=== PATIENT | female | born 1985 | race Caucasian/White ===

== ENCOUNTER → 2023-12-31 13:16 | Outpatient (REF) | payer OTHER, SELFPAY | LOC: PNTC 13:16 | PROVIDERS: ATTENDING PHYSICIAN Obstetrics & Gynecology | DX: O09.529 Supervision of elderly multigravida, unspecified trimester (principal) | CPT/HCPCS: 76811 ==

== ENCOUNTER → 2024-02-15 10:44 | Outpatient (REF) | payer OTHER, SELFPAY | LOC: PNTC 10:44 | PROVIDERS: ATTENDING PHYSICIAN Obstetrics & Gynecology | DX: O09.529 Supervision of elderly multigravida, unspecified trimester (principal) | CPT/HCPCS: 76816 ==

== ENCOUNTER 2024-04-12 09:32 | Inpatient (IN) | payer OTHER, SELFPAY ==
[2024-04-12 10:27] LABS: % Basophils 0.2 % (0-2); % Eosinophils 0.3 % (0-6); % Immature Granulocytes 0.5 % (0-0.5); % Lymphocytes 9.5 % (20.5-51.1); % Monocytes 4.7 % (1.7-9.3); % Neutrophils 84.8 % (42.2-75.2); Absolute Immature Granulocytes 0.1 10^3/uL (0-0.05); Absolute Lymphocytes 1.2 10^3/uL (1.2-3.4); Absolute Monocytes 0.6 10^3/uL (0.1-0.6); Absolute Neutrophils 10.7 10^3/uL (1.4-6.5); Mean Corp Hgb Conc. 34.3 g/dL (33.0-37.0); Mean Corpuscular Hgb 30.6 pg (27.0-31.0); Mean Corpuscular Volume 89.3 fL (81.0-99.0); Mean Platelet Volume 11.7 fL (7.4-10.4); Nucleated Red Blood Cells % 0 %; Platelet Count 226 10^3/uL (130-400); Red Blood Cell Count 3.92 10^6/uL (4.20-5.40); Red Cell Dist. Width 12.8 % (11.5-14.5); White Blood Cell Count 12.6 10^3/uL (4.8-10.8)
[2024-04-12 10:28] VITALS: BMI 29.0
[2024-04-12] MEDS: FENTANYL/BUPIVACAINE 100 EPIDURAL (11:10)
[2024-04-12] MEDS: SUBLIMAZE 100 MCG EPIDURAL (11:10)
[2024-04-12] MEDS: PITOCIN 30 UNITS/NSS 500 ML IV (11:54)
[2024-04-12 12:12] VITALS: BP 124/88
[2024-04-12] MEDS: TYLENOL 650 MG PO (16:10)
[2024-04-12] MEDS: MOTRIN 600 MG PO (16:34)
[2024-04-12 17:52] LABS: % Basophils 0.1 % (0-2); % Eosinophils 0.2 % (0-6); % Immature Granulocytes 0.5 % (0-0.5); % Lymphocytes 11.3 % (20.5-51.1); % Monocytes 6.4 % (1.7-9.3); % Neutrophils 81.5 % (42.2-75.2); Absolute Immature Granulocytes 0.1 10^3/uL (0-0.05); Absolute Lymphocytes 1.9 10^3/uL (1.2-3.4); Absolute Monocytes 1.1 10^3/uL (0.1-0.6); Absolute Neutrophils 13.4 10^3/uL (1.4-6.5); Hemoglobin 10.5 g/dL (12.0-16.0); Mean Corpuscular Hgb 30.4 pg (27.0-31.0); Mean Platelet Volume 11.1 fL (7.4-10.4); Nucleated Red Blood Cells % 0 %; Platelet Count 250 10^3/uL (130-400); Red Blood Cell Count 3.45 10^6/uL (4.20-5.40); Red Cell Dist. Width 12.8 % (11.5-14.5); White Blood Cell Count 16.5 10^3/uL (4.8-10.8)
[2024-04-12] MEDS: DILAUDID 1 MG IV ×2 (18:01→23:31)
[2024-04-12 18:04] LABS: INR 1.01; PT 13.1 Sec (11.4-14.6)
[2024-04-12 18:05] LABS: APTT 28.2 Sec (23.4-35.0)
[2024-04-12] MEDS: DILAUDID 0.5 MG IV (18:52)
--- NOTE | 2024-04-12 20:08 | CONS.URO ---
Consultation
-
Performing Provider: Jimbo Alvarado
Reason for Consultation: Vulvar hematoma
Medical History
History of Present Illness
38 yo woman day 0 after a standard vaginal delivery developed a hematoma of her right vulva. The patient developed vaginal and rectal pressure following her vaginal . On exam, the crts reported an enlarging right vulvar
hematoma. Dr. Galo was called for evaluation and noted the hematoma was enlarging within 3 hours of her delivery. The patient reported that she had worsening pressure of her vagina and rectum. Ice packs and compression was applied to the vulva
however the size of her vulvar hematoma continued to expand and her pain increased requiring IV Dilaudid. She denies any dizziness, vaginal bleeding, fevers, nausea or vomiting. Patient denies any medical history, bleeding disorders or regular
medications.
Past Medical History
Past Medical History: None
Past Surgical History: None
Social History
Tobacco: Non-smoker
Drug: None
Personal:
Employment: Employed
Family History
Family History: Reviewed & Not Pertinent
Allergies/Home Medications
Allergies
Allergy/AdvReac Type Severity Reaction Status Date / Time
No Known Allergies Allergy Verified 04/12/24 10:29
Home Medications
�Medication �Instructions �Recorded �Confirmed �Type
prenat.vits,stanislav,tng-vicp-lhxmj 1 tab PO DAILY Supplement 06/21/22 04/12/24 History
Review of Systems
-
A 12 point Review of Systems was completed except as noted: Yes
Constitutional: Reports No Symptoms
EENT: Reports No Symptoms
Respiratory: Reports No Symptoms
Cardiac: Reports No Symptoms
Abdomen/GI: Reports No Symptoms
: Reports See HPI
Musculoskeletal: Reports No Symptoms
Neurological: Reports No Symptoms
Endocrine: Reports No Symptoms
Psych: Reports No Symptoms
Physical Exam
Vital Signs
Vital Signs
Temp Pulse Resp BP
97.8 F 72 18 124/88
04/12/24 12:12 04/12/24 12:12 04/12/24 12:12 04/12/24 12:12
Lab / Testing Results
Laboratory Results
04/12/24 17:43
Physical Exam
Genitourinary: 12 to 15 cm right vulvar hematoma, sutures in tact from her 2nd degree perineal lacerations, perirectal edema and bruising, ++tenderness, no necrosis, no active bleeding noted, no discharge
Assessment / Plan
-
38 yo woman admitted for labor and delivery and developed vulvar hematoma soon after vaginal . Her CT angio demonstrated an arterial bleed of the internal pudendal artery (right side).
1. Vulvar Hematoma involving the right internal pudendal artery
-patient is going to IR for embolization of her arterial bleed
-remain NPO
-ice packs with compression
-IV Dilaudid PRN for pain control
-TXA 1 gram
-Due to size of the hematoma, patient will likely need evacuation of her hematoma in the OR for comfort however I recommend that her
-serial CBC and coag overnight
-type and cross for 2 units
-lala with strict I and O
Jimbo Alvarado MD
--- NOTE | 2024-04-12 22:45 | W.PN.UPDATE ---
Update Note
Progress Note Update
Procedure: Pelvic arteriogram with subselective arteriogram of left internal iliac branches
- Initial pelvic arteriogram showed faint abnormal blush of contrast on the late arterial phase suspicious for site of bleeding, felt to arise from the left internal pudendal artery. Subsequent selective arteriograms of the left internal pudendal
failed to reproduce any suspicious findings. Several additional branches interrogated, also negative.
- 5F Mynx closure device deployed.
- R leg flat for 3 hours
- Only fentanyl given during the case. Ok to breast feed in 3 hours.
[2024-04-12] MEDS: TRANEXAMIC ACID 100 IV (23:25)
[2024-04-12 23:34] LABS: Hematocrit 24.4 % (37.0-47.0); Hemoglobin 8.6 g/dL (12.0-16.0); Mean Corp Hgb Conc. 35.2 g/dL (33.0-37.0); Mean Corpuscular Hgb 30.5 pg (27.0-31.0); Mean Corpuscular Volume 86.5 fL (81.0-99.0); Mean Platelet Volume 11.3 fL (7.4-10.4); Platelet Count 250 10^3/uL (130-400); Red Blood Cell Count 2.82 10^6/uL (4.20-5.40); Red Cell Dist. Width 12.7 % (11.5-14.5); White Blood Cell Count 18.5 10^3/uL (4.8-10.8)
[2024-04-12] MEDS: FLAGYL 500 MG 100 IV (23:35)
[2024-04-12] MEDS: ANCEF 5 IV ×2 (23:37→23:45)
[2024-04-12] MEDS: ZOFRAN 4 MG IV (23:44)
[2024-04-13] VITALS (14 sets, daily range): BP systolic 89–118; BP diastolic 45–101
--- NOTE | 2024-04-13 02:06 | W.SUR.POST ---
Surgical Immediate Post Op
Note
Pre Op Diagnosis: Right vulvar hematoma
Post Op Diagnosis: Right vulvar hematoma
Procedure Performed: Exam under anesthesia, evacuation of hematoma
Primary Surgeon: Jimbo Alvarado MD
Secondary Surgeons: Sudheer Galo MD
Anesthesia: General with ET tube
Estimated Blood Loss: 100 cc
Drains/Shunts: Delarosa catheter
Specimens/Cultures: None
Doppler/Duplex/Angio (Y/N): N
Complications: None
Operative Findings: 15cm vulvar hematoma tracking into vaginal sidewall and perirectal space
[2024-04-13] MEDS: TYLENOL 650 MG PO ×5 (05:04→23:06)
[2024-04-13] MEDS: LR 1000 IV ×2 (05:45→20:09)
[2024-04-13 06:21] LABS: Hematocrit 24.8 % (37.0-47.0); Hemoglobin 8.6 g/dL (12.0-16.0)
[2024-04-13] MEDS: FLAGYL 500 MG IV ×2 (07:30→07:34)
[2024-04-13] MEDS: FLAGYL 500 MG 100 IV ×4 (07:35→23:05)
[2024-04-13] MEDS: ANCEF 5 IV ×3 (08:06→23:41)
--- NOTE | 2024-04-13 08:13 | W.PN.UPDATE ---
Update Note
Progress Note Update
38 yo female who had a spontaneous vaginal delivery yesterday. She developed a right vulvar hematoma. She underwent IR angiogram but no acute bleed was identified. She then had a spontaneous rupture of the hematoma and was taken to the OR for
evacuation. She is feeling better today.
VSS. She is AA&O in NAD. Color is pale skin. Skin is warm and dry. Heart is regular. Lungs are CTA. Abdomen is soft with expected tenderness. Bowel sounds are present. Right groin dressing CDI. Palpable pulses. No inguinal hematoma. No LE
edema.
Hgb 12.0-->10.5-->8.6
A/P
38 yo female post day #1. She had and developed vulvar hemtoma.
IR arteriogram was negative
She was taken to OR for evacuation of hematoma
She is stable this morning
Continue to trend H&H
I spent 35 minutes counseling and coordinating care of this patient, reviewing medical records, laboratory studies and imaging as well as reviewing the procedure.
--- NOTE | 2024-04-13 09:09 | W.PN.GYN ---
Today's Communication / Plan
-
1. NPO at midnight
2. CBC at noon today
Physician Note
-
38 yo woman PPD 1 and POD 1 s/p evacuation of vulvar hematoma soon after vaginal . Her CT angio demonstrated an arterial bleed of the internal pudendal artery (right side) however IR unable to embolize. She spontaneously rupture her hemotoma so
patient was taken to OR for evacuation of clot and packing of wound.
1. Vulvar Hematoma involving the right internal pudendal artery
-Patient schedule for packing removal, EUA and wound washout on 04/14/24 at 7:15am
-s/p CT angio: right internal pudenal bleeding identified however IR unable to embolize
-s/p hematoma evacuation and packing of wound 04/13/24
-NPO at midnight
-ice packs with compression
-IV Dilaudid PRN for pain control
-s/p TXA 1 gram x2 doses
-CBC and coag at noon today; s/p 2 units RBCs overnight
-lala with strict I and O
Jimbo Alvarado MD
Subjective:
pain greatly improved postoperatively
denies additional bleeding
denies fevers or chills
no abnormal discharge
Objective
Intake and Output
04/11/24 04/12/24 04/13/24 04/14/24
06:59 06:59 06:59 06:59
Intake Total 250 / 250
Output Total 200 / 200
Balance 50 / 50
Intake:
IV fluids (Total) 250 / 250
blood 250 / 250
Blood Product Amount Infused ( 0 / 0
mL)
Packed Rbc Leukoreduced Unit 0 / 0
[id number]
Output:
Urine, Lala 200 / 200
Vital Signs
Temp Pulse Resp BP Pulse Ox
98.7 F 67 12 111/47 99
05/22/24 02:43 04/13/24 02:54 04/13/24 02:54 04/13/24 02:54 04/13/24 02:54
[2024-04-13] MEDS: SENOKOT-S 1 TABLET PO (11:46)
[2024-04-13 12:42] LABS: % Basophils 0.2 % (0-2); % Eosinophils 0.4 % (0-6); % Immature Granulocytes 0.4 % (0-0.5); % Monocytes 5.5 % (1.7-9.3); % Neutrophils 81.5 % (42.2-75.2); Absolute Lymphocytes 1.1 10^3/uL (1.2-3.4); Absolute Monocytes 0.5 10^3/uL (0.1-0.6); Absolute Neutrophils 7.3 10^3/uL (1.4-6.5); Hemoglobin 7.1 g/dL (12.0-16.0); Mean Corp Hgb Conc. 35.1 g/dL (33.0-37.0); Mean Corpuscular Hgb 30.5 pg (27.0-31.0); Mean Corpuscular Volume 86.7 fL (81.0-99.0); Mean Platelet Volume 11.6 fL (7.4-10.4); Nucleated Red Blood Cells % 0 %; Platelet Count 164 10^3/uL (130-400); Red Blood Cell Count 2.33 10^6/uL (4.20-5.40); Red Cell Dist. Width 13.4 % (11.5-14.5)
[2024-04-13 12:47] LABS: INR 1.18
[2024-04-13 13:00] LABS: Hematocrit 20.2 % (37.0-47.0)
[2024-04-13] MEDS: DILAUDID 1 MG IV (13:37)
[2024-04-13 22:09] LABS: Mean Corp Hgb Conc. 36.7 g/dL (33.0-37.0); Mean Corpuscular Volume 84.5 fL (81.0-99.0); Mean Platelet Volume 11.2 fL (7.4-10.4); Platelet Count 192 10^3/uL (130-400); Red Blood Cell Count 2.84 10^6/uL (4.20-5.40); Red Cell Dist. Width 13.5 % (11.5-14.5); White Blood Cell Count 10.3 10^3/uL (4.8-10.8)
[2024-04-13 22:10] LABS: Hemoglobin 8.8 g/dL (12.0-16.0)
[2024-04-14 05:33] LABS: Hematocrit 23.5 % (37.0-47.0); Hemoglobin 8.5 g/dL (12.0-16.0); Mean Corp Hgb Conc. 36.2 g/dL (33.0-37.0); Mean Corpuscular Hgb 31.1 pg (27.0-31.0); Mean Corpuscular Volume 86.1 fL (81.0-99.0); Mean Platelet Volume 11.5 fL (7.4-10.4); Platelet Count 192 10^3/uL (130-400); Red Blood Cell Count 2.73 10^6/uL (4.20-5.40); Red Cell Dist. Width 13.7 % (11.5-14.5); White Blood Cell Count 10.1 10^3/uL (4.8-10.8)
[2024-04-14 06:02] LABS: APTT 31.6 Sec (23.4-35.0); Fibrinogen 413 MG/DL (199-459); INR 0.95; PT 12.7 Sec (11.4-14.6)
[2024-04-14] MEDS: ANCEF IV (07:34)
[2024-04-14] MEDS: FLAGYL 500 MG IV (07:36)
--- NOTE | 2024-04-14 08:13 | W.SUR.POST ---
Surgical Immediate Post Op
Note
Pre Op Diagnosis: vulvar Hematoma
Post Op Diagnosis: Vulvar Hematoma
Procedure Performed: Removal of vaginal and wound packing, irrigation of wound, ZEINAB drain placement and wound closure
Primary Surgeon: Jimbo Alvarado MD
Secondary Surgeons: None
Anesthesia: General with ET tube
Estimated Blood Loss: 5cc
Drains/Shunts: ZEINAB drain right vulva
Specimens/Cultures: None
Doppler/Duplex/Angio (Y/N): N
Complications: None
[2024-04-14 08:25] VITALS: BP 112/64
[2024-04-14 08:26] VITALS: BP 100/43
[2024-04-14 08:30] VITALS: BP 101/46
[2024-04-14 08:45] VITALS: BP 106/55
[2024-04-14 09:00] VITALS: BP 101/58
[2024-04-14] MEDS: TYLENOL 650 MG PO ×2 (12:50→17:30)
[2024-04-14] MEDS: FLAGYL 500 MG 100 IV (15:27)
[2024-04-14] MEDS: KEFLEX 500 MG PO (19:57)
[2024-04-15] MEDS: TYLENOL 650 MG PO ×5 (01:22→22:12)
[2024-04-15 05:35] LABS: Hematocrit 23.9 % (37.0-47.0); Hemoglobin 8.2 g/dL (12.0-16.0); Mean Corp Hgb Conc. 34.3 g/dL (33.0-37.0); Mean Corpuscular Hgb 30.8 pg (27.0-31.0); Mean Corpuscular Volume 89.8 fL (81.0-99.0); Mean Platelet Volume 11.6 fL (7.4-10.4); Platelet Count 200 10^3/uL (130-400); Red Blood Cell Count 2.66 10^6/uL (4.20-5.40); Red Cell Dist. Width 13.5 % (11.5-14.5); White Blood Cell Count 12.1 10^3/uL (4.8-10.8)
--- NOTE | 2024-04-15 06:54 | W.PN.GYN ---
Today's Communication / Plan
-
1. wound irrigation/perineal irrigation 4 to 5 times per day
2. Voiding trial
3. start stool softeners
Physician Note
-
Assessment and Plan:
38 yo woman PPD 2 and POD 2 s/p evacuation of vulvar hematoma and POD 1 s/p wound irrigation, packing removed, ZEINAB drain placements and wound closure. Her CT angio demonstrated an arterial bleed of the internal pudendal artery (right side)
however IR unable to embolize. She spontaneously ruptured her hemotoma so patient was taken to OR for evacuation of clot and packing of wound and then subsequently taken to the OR for wound irrigation and drain placement. Patient currently remains
stable with stable hemoglobin this morning.
1. Vulvar Hematoma involving the right internal pudendal artery
-s/p packing removal, EUA and wound washout with ZEINAB drain placement 04/14/24
-s/p evacuation of hematoma and packing on 04/13/24
-s/p TXA 1 gram x2 doses 04/13/24
-s/p CT angio: right internal pudenal bleeding identified however IR unable to embolize
-Regular Diet
-ice packs with compression
-Wound irrigation with presley bottle or sitz baths 4 to 5 times per day; attempt to keep wound clean
-CBC stable at 8.2
-ZEINAB drain: bloody output: plan to remove in 1 week in the office once output less than 30cc/day
-Lala removed at 5am
-Start Colace/Senna 2 tabs per day for bowel regimen
-Prophylactic antibiotics: Keflex 500mg BID x7 days after discharge
Jimbo Alvarado MD
Subjective:
pain greatly improved postoperatively
denies additional bleeding from vagina or wound
denies fevers or chills
lala remove but has not voided today
ambulating in room
Objective:
Intake and Output
04/13/24 04/14/24 04/15/2424
06:59 06:59 06:59 06:59
Intake Total 250 / 250 250 / 250 75 / 75
Output Total 200 / 200 400 / 400
Balance 50 / 50 250 / 250 -325 / -325
Intake:
IV fluids (Total) 250 / 250 75 / 75
blood 250 / 250
normosol 75 / 75
Blood Product Amount Infused ( 0 / 0 250 / 250
mL)
Packed Rbc Leukoreduced Unit 250 / 250
[id number]
Packed Rbc Leukoreduced Unit 0 / 0
[id number]
Output:
Urine, Lala 200 / 200 400 / 400
Vital Signs
Temp Pulse Resp BP Pulse Ox
97.9 F 65 15 101/58 94
04/14/24 08:55 04/14/24 09:00 04/14/24 09:00 04/14/24 09:00 04/14/24 09:05
Lab Results
04/15/24 05:19
: right vulvar bruising unchanged overnight, hematoma size greatly reduced, nontender, no fluctuance, no sign of infection
[2024-04-15] MEDS: KEFLEX 500 MG PO ×2 (08:32→20:38)
[2024-04-15] MEDS: SENOKOT-S 1 TABLET PO (08:33)
[2024-04-15 15:08] LABS: Syphilis/T. pallidum Ab Reflex Negative (Negative)
[2024-04-15 15:08] LABS: Syphilis/T. pallidum Ab Reflex Negative (Negative)
[2024-04-15] MEDS: DILAUDID 2 MG PO (21:00)
[2024-04-16] MEDS: DILAUDID 2 MG PO ×3 (02:11→09:35)
[2024-04-16] MEDS: TYLENOL 650 MG PO ×3 (02:12→09:35)
[2024-04-16] MEDS: SENOKOT-S 1 TABLET PO (08:43)
[2024-04-16] MEDS: KEFLEX 500 MG PO (08:43)
== END 2024-04-16 12:04 | disposition home or self-care (01) | DRG 768 ==
LOC: LDRP 09:32
PROVIDERS: Obstetrics & Gynecology; Radiology Diagnostic Radiology; ADMITTING PHYSICIAN Advanced Practice Midwife; CONSULT PHYSICIAN Obstetrics & Gynecology
PROC: B41C1ZZ Fluoroscopy of Pelvic Arteries using Low Osmolar Contrast (ICD-10-PCS; 2024-04-12)
PROC: 0KQM0ZZ Repair Perineum Muscle, Open Approach (ICD-10-PCS; 2024-04-12)
PROC: 10E0XZZ Delivery of Products of Conception, External Approach (ICD-10-PCS; 2024-04-12)
PROC: 10907ZC Drainage of Amniotic Fluid, Therapeutic from Products of Conception, Via Natural or Artificial Opening (ICD-10-PCS; 2024-04-12)
PROC: 30233N1 Transfusion of Nonautologous Red Blood Cells into Peripheral Vein, Percutaneous Approach (ICD-10-PCS; 2024-04-13)
PROC: 0UCGXZZ Extirpation of Matter from Vagina, External Approach (ICD-10-PCS; 2024-04-13)
PROC: 3E1P78Z Irrigation of Female Reproductive using Irrigating Substance, Via Natural or Artificial Opening (ICD-10-PCS; 2024-04-14)
PROC: 0U9MX0Z Drainage of Vulva with Drainage Device, External Approach (ICD-10-PCS; 2024-04-14)
DX: O48.0 Post-term pregnancy (principal); Z37.0 Single live birth; Z3A.40 40 weeks gestation of pregnancy; O70.1 Second degree perineal laceration during delivery; F95.2 Tourette's disorder; O24.420 Gestational diabetes mellitus in childbirth, diet controlled; O71.82 Other specified trauma to perineum and vulva
CPT/HCPCS: 36246; 36415; 74174; 75726; 76937; 85014; 85018; 85025; 85027; 85384; 85610; 85730; 86780; 86850; 86900; 86901; 86920; C1769; C1887; P9016; Q9967